=== PATIENT | male | born 1950 | race Caucasian/White ===

== ENCOUNTER 2019-05-29 06:41 | Day surgery (SDC) | payer OTHER, MEDICARE ==
[~2019-05-29] VITALS: Ht 190.5 cm; Wt 101.6 kg
[~2019-05-29 06:41] MED LIST: AMLODIPINE BESY10 MG PO; LOSARTAN POTASS50 MG PO; VITAMIN D-40010 MCG PO
[2019-05-29 07:25] VITALS: BP 147/80
[2019-05-29 10:18] VITALS: BP 147/80
--- NOTE | 2019-05-29 10:20 | H ---
[facility] [place] [address] HISTORY AND PHYSICAL Name: MAI RG Room #: 150-6 [facility]..#: [id number] Admission: 05/29/19 Attend Phys: Geoffrey Ruiz MD Discharge: Date of : 50 Report #: [id number] THIS REPORT FOR: //name// CC: Vamshi Mendoza PATIENT OF: Dr. Ambrosio Eagle, Dr. Vamshi Segura. CHIEF COMPLAINT: Groin bulge. HISTORY OF PRESENT ILLNESS: The patient is a 69-year-old male who has had some pain, which comes and goes in the left groin. No previous history of any hernias. He denies any recent bowel changes. He has had frequent colonoscopies for removal of polyps in the past. He denies any recent urinary changes. He did have a prostatectomy performed [address] Gamaliel Segura for prostate carcinoma. He saw Dr. Eagle who recommended a surgical consultation for this groin pain and bulge. PAST MEDICAL HISTORY: Hypertension, diverticulosis, arthritis, colon polyps, scalp nevus lumbar radiculopathy, prostate carcinoma, history of vertigo, low back pain, right knee surgery in 1975, prostatectomy for prostate carcinoma in 11/2014. MEDICATIONS: Vitamin D, losartan 50 mg p.o. every day, amlodipine 10 mg p.o. every day, Advil p.r.n. ALLERGIES: REAL INHIBITORS. FAMILY HISTORY: Noncontributory. SOCIAL HISTORY: . He is retired. Quit smoking in 1999. Drinks alcohol occasionally. REVIEW OF SYSTEMS: Pertinent positives as above. Full review of systems otherwise negative. PHYSICAL EXAMINATION: GENERAL: Well-developed, well-nourished male in no acute distress. VITAL SIGNS: Stable. He is afebrile. HEENT: Unremarkable. LUNGS: Clear to auscultation bilaterally. CARDIOVASCULAR: Regular rate and rhythm. No murmurs, S3, S4, no PMI. ABDOMEN: Soft, flat and nontender. No palpable masses, no organomegaly, no hernias. GENITOURINARY: Normal scrotum, phallus and testes. There was a moderate sized [facility] [address] [place] [address] HISTORY AND PHYSICAL Name: MAI RG Room #: 150-6 [facility].#: [id number] Admission: 05/29/19 Attend Phys: Geoffrey Ruiz MD Discharge: Date of : 50 Report #: [id number] partially-reducible left inguinal hernia with some tenderness. EXTREMITIES: No clubbing, cyanosis or edema. NEUROLOGIC: Intact. Clear mental status. IMPRESSION: A 69-year-old male with a left inguinal hernia. I fully discussed with the patient diagnosis, prognosis, and treatment options and benefits of each. He states he understands and agrees to proposed surgery. PLAN: We will perform a left inguinal hernia repair under local IV sedation as an outpatient at [facility]. The procedure and its risks, benefits and possible complications including the use of mesh were fully discussed with the patient. He states he understands and agrees to proposed surgery. <ELECTRONICALLY SIGNED> By: Geoffrey Ruiz MD 05/29/19 1020 1245 1258 Geoffrey Ruiz MD /nt
--- NOTE | 2019-05-29 13:53 | O ---
[facility] [place] [address] OPERATIVE REPORT Name: IFRAHMAI Room #: 150-6 [facility].#: [id number] Admission: 05/29/19 Attend Phys: Geoffrey Ruiz MD Discharge: Date of : 50 Report #: [id number] THIS REPORT FOR: //name// CC: DORINDA EAGLE DO Dorinda Ruiz DATE OF SERVICE: 05/29/2019 PATIENT OF: Dr. Geoffrey Ruiz and Dr. Dorinda Eagle PREOPERATIVE DIAGNOSIS: Left inguinal hernia. POSTOPERATIVE DIAGNOSES: Left inguinal hernia with a left cord lipoma. PROCEDURES: Left inguinal hernia repair with Prolene hernia system mesh and excision of a left cord lipoma. SURGEON: Geoffrey Ruiz MD ANESTHESIA: Local IV sedation. DESCRIPTION OF PROCEDURE: The patient was brought to the operating room and placed on operative table in the supine position. Sequential compression devices were in place for DVT prophylaxis. There was no indication for preoperative antibiotics. The patient underwent IV sedation and was prepped and draped in a sterile fashion. Skin and subcutaneous tissue were then infiltrated with 0.5% Marcaine and 1% Xylocaine in a 1:1 mixture. Left inguinal skin incision was then performed using #10 scalpel blade. Hemostasis obtained using electrocautery as well as clamps and 2-0 chromic ties. Dissection was carried down through subcutaneous tissue, the external oblique fascia, which was then incised with a knife and opened with the Metzenbaum scissors. The ilioinguinal nerve was identified, dissected free, injected with a local mixture and preserved. Cord was then elevated and held into place with a [place] drain. Cremasteric muscle fibers were then split in the direction of their fibers using clamp and electrocautery. An indirect inguinal hernia sac and a cord lipoma were both identified, dissected free. A cord lipoma was clamped, excised and tied with a 2-0 chromic tie. The hernia sac was then dissected free and reduced back through the internal ring. An extended Prolene hernia system mesh was then inserted through the internal ring and the underlay patch was then deployed in the preperitoneal space. Connector was left in the internal ring and the overlay patch was then deployed into the inguinal canal. The mesh was secured at the pubic tubercle superiorly and at the connector using simple interrupted 2-0 Vicryl sutures. The mesh was split and wrapped around the cord, secured to the inguinal ligament with simple interrupted 2-0 Vicryl suture. The cord and ilioinguinal nerve were then returned to the canal intact. The external oblique [facility] [address] [place] [address] OPERATIVE REPORT Name: IFRAHMAI Room #: 150-6 [facility] M..#: [id number] Admission: 05/29/19 Attend Phys: Geoffrey Ruiz MD Discharge: Date of : 50 Report #: [id number] fascia was then closed using a running 2-0 Vicryl suture. Kerry's fascia was then reapproximated using 3 simple interrupted 2-0 chromic sutures and the skin then closed with a running 4-0 subcuticular Vicryl stitch. The wound was then dressed with Mastisol, 1/2-inch Steri-Strips cut in half, Telfa, 4 x 4 gauze, sponge and tape. The patient was then awakened from the IV sedation, taken to recovery room awake, alert and in good condition. Estimated blood loss was approximately 5 mL and the patient tolerated procedure well. All sponge, lap and instrument counts were correct x 2. <ELECTRONICALLY SIGNED> By: Geoffrey Ruiz MD 05/29/19 1353 1018 1036 Geoffrey Ruiz MD /nt
--- NOTE | 2019-05-30 16:06 | PATH ---
[facility] [address] [place] [address] PATHOLOGY RPT PROCEDURE Name: MELCHOR BEARD Room #: DEP [facility].#: [id number] Admission: 05/29/19 Date of : 50 Discharge: 05/29/19 Report #: [id number] Path Case #: [id number] [facility] Accession Number: [id number] . 01 Material submitted: . inguinal area - LEFT CORD LIPOMA. Modifiers: left . 01 Clinical history: . Unilateral inguinal hernia without obstruction or gangrene, recurrent . 02 Diagnosis: Mature adipose tissue, left cord lipoma, excision: - Compatible with a lipoma. (IUV/db; 05/30/2019) [facility] 05/30/2019 1348 Local . 02 Electronically signed: . Senait Ledesma MD, Pathologist NPI- [id number] . 01 Gross description: . The specimen is received in formalin, labeled "Melchor Beard, left cord lipoma". Received is a segment of encapsulated yellow-ng lobulated tissue measuring 3.1 x 1.7 x 1.1 cm in greatest dimensions. Sectioning reveals bright yellow cut surfaces with no grossly distinct nodules or lesions. The specimen is submitted representatively in cassette A1. (CAA; 05/29/2019) [facility] 05/29/2019 1515 Local . 02 Pathologist provided ICD-10: D17.9 . 02 CPT . 577763 Specimen Comment: A courtesy copy of this report has been sent to [phone], [phone] Specimen Comment: [id number] Specimen Comment: Report sent to / DR VÁSQUEZ Performed at: [address], [place] [id number] MD Vasile Pulido MD Phone: [phone] Performed at: [address] [id number] MD Senait Ledesma MD Phone: [phone]
== END 2019-05-29 11:14 | disposition home or self-care (01) ==
LOC: TBA 06:41 → OR 06:41
DX: K40.90 Unilateral inguinal hernia, without obstruction or gangrene, not specified as recurrent (principal); D17.6 Benign lipomatous neoplasm of spermatic cord; I10 Essential (primary) hypertension; M19.90 Unspecified osteoarthritis, unspecified site; G47.30 Sleep apnea, unspecified; Z98.890 Other specified postprocedural states; Z85.46 Personal history of malignant neoplasm of prostate; Z86.010 Personal history of colon polyps; Z79.899 Other long term (current) drug therapy; Z88.8 Allergy status to other drugs, medicaments and biological substances; Z87.891 Personal history of nicotine dependence
CPT/HCPCS: 50010; 50101; 50386; 50417; 54111; 56524; 56526; 56528; 62110; 62900; 70005